=== PATIENT | female | born 1970 | race Caucasian/White ===

== ENCOUNTER 2017-05-18 19:39 | Emergency (ER) | payer SELFPAY ==
[~2017-05-18 19:39] MED LIST: CIPR500T4 PO; METR-1 PO; PERC5TAB12 PO
[2017-05-18 19:40] VITALS: BP 139/105; PULSE 125; RESP 16; TEMP 97.1; O2SAT 95
[2017-05-18] MEDS ORDERED: SODIUM CHLORIDE 0.9% FLUSH 10 ML FLUSH IV FLUSH PRN (20:30)
--- NOTE | 2017-05-18 20:48 | RADRPT ---
EXAM DATE/TIME: 05/18/2017 20:36 [facility] COMPARISON: No previous studies available for comparison. INDICATIONS : Syncope MEDICAL HISTORY : None. SURGICAL HISTORY : Tubal ligation. ENCOUNTER: Initial ACUITY: 1 day PAIN SCORE: 0/10 LOCATION: chest FINDINGS: PA and lateral views of the chest demonstrate the lungs to be symmetrically aerated without evidence of mass, infiltrate or effusion. The cardiomediastinal contours are unremarkable. Osseous structure s are intact. CONCLUSION: Normal examination. Yon Orosco MD on May 18, 2017 at 20:45 Board Certified Radiologist. This report was verified electronically.
--- NOTE | 2017-05-18 21:07 | PD ---
HPI Chief Complaint: Medical Clearance Time Seen by Provider: 20:28 Travel History International Travel<30 days: No Contact w/Intl Traveler<30days: No Traveled to known affect area: No History of Present Illness HPI Patient is a 47-year-old female presents emergency Department with daughter for complaints of altered mental status. Per the patient's daughter's has not been acting like herself in the past few hours, she does have a history of alcohol abuse. Patient states she's not had any alcohol since earlier this morning. She is calm and collective but certainly is somnolent in the emergency department. She states that she does have some mild abdominal cramping which is nonlocalizing. He was gagging in triage notes, no emesis. Does smell of EtOH this time. She denies any chest pain shortness of breath vomiting headache injury neck injury back injury vaginal bleeding or vaginal discharge. Per her daughter she has been talking "out of her head". She's never done this before. Somewhat limited by the patient's intoxication. PFSH Past Medical History Asthma: Yes Diminished Hearing: No Immunizations Current: Yes ?: Not : 4 Para: 3 Miscarriage: 1 Dilation and Curettage (D&C): Yes Tubal Ligation: Yes Past Surgical History Gynecologic Surgery: Yes (BTL) Social History Alcohol Use: Yes (12 BEERS/DAY) Tobacco Use: No Substance Use: No (DENIES) Allergies-Medications (Allergen,Severity, Reaction): Coded Allergies: No Known Allergies (Verified Allergy, Unknown, 05/18/17) Reported Meds & Prescriptions Reported Meds & Active Scripts Active Proair Hfa 8.5 GM Inh (Albuterol Sulfate) 90 Mcg/Act Aer 1 Puff INH Q4H PRN 108 mcg/actuation Keflex (Cephalexin) 500 Mg Cap 500 Mg PO Q6H 5 Days Review of Systems Except as stated in HPI: all other systems reviewed are Neg Physical Exam Narrative GENERAL: Well-developed well-nourished no obvious distress, thin, smells of alcohol. SKIN: Focused skin assessment warm/dry. HEAD: Atraumatic. Normocephalic. EYES: Pupils equal and round. No scleral icterus. No injection or drainage. ENT: No nasal bleeding or discharge. Mucous membranes pink and moist. NECK: Trachea midline. No JVD. CARDIOVASCULAR: Regular rate and rhythm. No murmur appreciated. RESPIRATORY: No accessory muscle use. Clear to auscultation. Breath sounds equal bilaterally. GASTROINTESTINAL: Abdomen soft, non-tender, nondistended. Hepatic and splenic margins not palpable. No rebound no percussive tenderness, Morales sign negative Rovsing sign negative psoas and obturator signs negative. No CVA tenderness. MUSCULOSKELETAL: No obvious deformities. No clubbing. No cyanosis. No edema. NEUROLOGICAL: Awake and alert. Somnolent but cranial nerves II through XII are grossly intact, 5 out of 5 strength in all 4 extremities, cerebellar testing negative, significant horizontal nystagmus. PSYCHIATRIC: Appropriate mood and affect; insight and judgment normal. Data Data Last Documented VS Vital Signs Date Time Temp Pulse Resp B/P (MAP) Pulse Ox O2 Delivery O2 Flow Rate FiO2 05/19/17 00:53 90 14 125/71 (89) 96 Room Air 05/18/17 23:23 2.00 05/18/17 19:40 97.1 Orders Orders Complete Blood Count With Diff (05/18/17 20:23) Comprehensive Metabolic Panel (05/18/17 20:23) Creatine Kinase (Cpk) (05/18/17 20:23) Urinalysis - C+S If Indicated (05/18/17 20:23) Chest, Pa & Lat (05/18/17 20:23) Ct Brain W/O Iv Contrast(Rout) (05/18/17 20:23) Blood Glucose (05/18/17 20:23) Ecg Monitoring (05/18/17 20:23) Iv Access Insert/Monitor (05/18/17 20:23) Oximetry (05/18/17 20:23) Sodium Chloride 0.9% Flush (Ns Flush) (05/18/17 20:30) Drug Screen, Random Urine (05/18/17 20:23) Alcohol (Ethanol) (05/18/17 20:23) Electrocardiogram (05/18/17 ) CKMB (05/18/17 21:09) CKMB% (05/18/17 21:09) Lipase (05/18/17 22:23) Sodium Chlor 0.9% 1000 Ml Inj (Ns 1000 M (05/18/17 22:30) Cath For Specimen (05/18/17 23:58) Urine Culture (05/18/17 23:58) Ed Discharge Order (05/19/17 00:42) Labs Laboratory Tests Test 05/18/17 21:09 05/18/17 21:36 05/18/17 23:58 White Blood Count 5.3 TH/MM3 Red Blood Count 3.01 MIL/MM3 Hemoglobin 7.2 GM/DL Hematocrit 22.7 % Mean Corpuscular Volume 75.2 FL Mean Corpuscular Hemoglobin 23.7 PG Mean Corpuscular Hemoglobin Concent 31.6 % Red Cell Distribution Width 19.9 % Platelet Count 264 TH/MM3 Mean Platelet Volume 7.5 FL Neutrophils (%) (Auto) 60.6 % Lymphocytes (%) (Auto) 27.2 % Monocytes (%) (Auto) 10.6 % Eosinophils (%) (Auto) 0.3 % Basophils (%) (Auto) 1.3 % Neutrophils # (Auto) 3.2 TH/MM3 Lymphocytes # (Auto) 1.4 TH/MM3 Monocytes # (Auto) 0.6 TH/MM3 Eosinophils # (Auto) 0.0 TH/MM3 Basophils # (Auto) 0.1 TH/MM3 CBC Comment DIFF FINAL Differential Comment Blood Urea Nitrogen 8 MG/DL Creatinine 0.91 MG/DL Random Glucose 99 MG/DL Total Protein 8.3 GM/DL Albumin 3.9 GM/DL Calcium Level 8.6 MG/DL Alkaline Phosphatase 95 U/L Aspartate Amino Transf (AST/SGOT) 90 U/L Alanine Aminotransferase (ALT/SGPT) 46 U/L Total Bilirubin 0.4 MG/DL Sodium Level 141 MEQ/L Potassium Level 3.5 MEQ/L Chloride Level 103 MEQ/L Carbon Dioxide Level 26.5 MEQ/L Anion Gap 12 MEQ/L Estimat Glomerular Filtration Rate 66 ML/MIN Total Creatine Kinase 422 U/L Creatine Kinase MB 6.9 NG/ML Creatine Kinase MB % 1.6 % Ethyl Alcohol Level 195 MG/DL Lipase 103 U/L Urine Color YELLOW Urine Turbidity CLOUDY Urine pH 5.0 Urine Specific Secretary 1.010 Urine Protein 30 mg/dL Urine Glucose (UA) NEG mg/dL Urine Ketones NEG mg/dL Urine Occult Blood SMALL Urine Nitrite NEG Urine Bilirubin NEG Urine Urobilinogen LESS THAN 2.0 MG/DL Urine Leukocyte Esterase MOD Urine RBC 4 /hpf Urine WBC 21 /hpf Urine Squamous Epithelial Cells 34 /hpf Urine Renal Epithelial Cells 4 /hpf Urine Bacteria OCC /hpf Urine Hyaline Casts 57 /lpf Urine Mucus FEW /lpf Microscopic Urinalysis Comment CATH-CULTURE IND Urine Opiates Screen POS Urine Barbiturates Screen NEG Urine Amphetamines Screen POS Urine Benzodiazepines Screen NEG Urine Cocaine Screen POS Urine Cannabinoids Screen NEG MDM Medical Decision Making Medical Screen Exam Complete: Yes Emergency Medical Condition: Yes Differential Diagnosis Alcohol intoxication, alcohol delirium, intracranial abnormality, lecture led her belly, urinary tract infection, acute abdomen unlikely. Narrative Course Patient roomed in emergency department, observed for several hours while her alcohol metabolized. Significant elevation on arrival, this probably explains her altered mental status, the patient's mental status improved significantly and daughter would like to take patient home. Discussed that her urine drug screen was also positive for multiple other substances of abuse. After obtaining permission from the patient this was also discussed with her daughter and recommended follow up with [facility] for an appropriate facility for treatment for substance abuse. Discussed since an old finding of urinary tract infection which may explain her abdominal cramping, will place on antibiotics. She is also anemic and this was discussed with her and she would like to follow-up the primary care physician. Discussed if any bleeding per rectum or hematemesis occur the patient should return to emergency department immediately. This was discussed both the daughter and the patient both verbalized understanding and agreement. Diagnosis Primary Impression: UTI (urinary tract infection) Additional Impressions: Alcohol abuse Alcohol intoxication Anemia Referrals: [facility]Other Pt SpecificInfo: Prescription(s) given Scripts Albuterol 8.5 GM Inh (Proair Hfa 8.5 GM Inh) 90 Mcg/Act Aer 1 PUFF INH Q4H Y for SHORTNESS OF BREATH, #1 INHALER 1 Refill 108 mcg/actuation Prov: Foreign Denton MD 05/19/17 Cephalexin (Keflex) 500 Mg Cap 500 MG PO Q6H for Infection for 5 Days, #20 CAP 0 Refills Prov: Foreign Denton MD 05/19/17 Disposition: 01 DISCHARGE HOME Condition: Stable Foreign Denton MD May 18, 2017 21:07
[2017-05-18 22:12] LABS: ALBUMIN 3.9 GM/DL (3.4-5.0); AST (GOT) 90 U/L (15-37); BICARBONATE 26.5 MEQ/L (21.0-32.0); BLOOD UREA NITROGEN 8 MG/DL (7-18); CALCIUM 8.6 MG/DL (8.5-10.1); CHLORIDE 103 MEQ/L (98-107); CREATININE 0.91 MG/DL (0.50-1.00); GLOMERULAR FILTRATION RATE 66 ML/MIN (>89); GLUCOSE,RANDOM 99 MG/DL (74-106); SODIUM (NA) 141 MEQ/L (136-145)
--- NOTE | 2017-05-18 22:13 | RADRPT ---
EXAM DATE/TIME: 05/18/2017 21:52 [facility] COMPARISON: No previous studies available for comparison. INDICATIONS : Altered mental status. RADIATION DOSE: 56.35 CTDIvol (mGy) MEDICAL HISTORY : ETOH abuse SURGICAL HISTORY : Tubal ligation. D&C ENCOUNTER: Initial ACUITY: 1 day PAIN SCALE: 0/10 LOCATION: cranial TECHNIQUE: Multiple contiguous axial images were obtained of the head. Using automated exposure control and adj ustment of the mA and/or kV according to patient size, radiation dose was kept as low as reasonably a chievable to obtain optimal diagnostic quality images. DICOM format image data is available electro nically for review and comparison. FINDINGS: CEREBRUM: The ventricles are normal for age. No evidence of midline shift, mass lesion, hemorrhage or acute in farction. No extra-axial fluid collections are seen. POSTERIOR FOSSA: The cerebellum and brainstem are intact. The 4th ventricle is midline. The cerebellopontine angle i s unremarkable. EXTRACRANIAL: The visualized portion of the orbits is intact. SKULL: The calvaria is intact. No evidence of skull fracture. CONCLUSION: Normal examination. Yon Orosco MD on May 18, 2017 at 22:11 Board Certified Radiologist. This report was verified electronically.
[2017-05-18 22:14] LABS: ALT (GPT) 46 U/L (10-53)
[2017-05-18 22:16] LABS: ALKALINE PHOSPHATASE 95 U/L (45-117); TOTAL BILIRUBIN ADULT 0.4 MG/DL (0.2-1.0); TOTAL PROTEIN 8.3 GM/DL (6.4-8.2)
[2017-05-18] MEDS ORDERED: SODIUM CHLOR 0.9% 1000 ML INJ 1,000 ML IV ONE (22:30)
[2017-05-18 23:03] LABS: AUTOMATED NEUTROPHIL # 3.2 TH/MM3 (1.8-7.7); BASOPHIL # 0.1 TH/MM3 (0-0.2); BASOPHIL % 1.3 % (0.0-2.0); EOSINOPHIL % 0.3 % (0.0-4.0); HEMATOCRIT 22.7 % (35.0-46.0); HEMOGLOBIN 7.2 GM/DL (11.6-15.3); LYMPH % 27.2 % (9.0-44.0); LYMPHOCYTE # 1.4 TH/MM3 (1.0-4.8); MEAN CELL VOLUME 75.2 FL (80.0-100.0); MEAN CORPUSCULAR HEMOGLOBIN 23.7 PG (27.0-34.0); MEAN CORPUSCULAR HGB CONC 31.6 % (32.0-36.0); MEAN PLATELET VOLUME 7.5 FL (7.0-11.0); MONO % 10.6 % (0.0-8.0); MONOCYTE # 0.6 TH/MM3 (0-0.9); NEUT % 60.6 % (16.0-70.0); PLATELET COUNT 264 TH/MM3 (150-450); RED BLOOD COUNT 3.01 MIL/MM3 (4.00-5.30); RED CELL DISTRIBUTION WIDTH 19.9 % (11.6-17.2); WHITE BLOOD COUNT 5.3 TH/MM3 (4.0-11.0)
[2017-05-18 23:23] VITALS: BP 148/85; PULSE 105; RESP 12; O2SAT 100
[2017-05-18 23:25] VITALS: O2SAT 100
[2017-05-19 00:17] LABS: BACTERIA, URINE OCC /hpf; BILIRUBIN, URINE NEG (NEG); BLOOD, URINE SMALL (NEG); GLUCOSE,URINE NEG (NEG); HYALINE CAST, URINE 57 /lpf (RARE); KETONE, URINE NEG (NEG); MUCUS URINE FEW /lpf (OCC); NITRITE,URINE NEG (NEG); RENAL EPITHELIAL CELLS 4 /hpf; SQUAMOUS EPITHELIAL CELL URINE 34 /hpf (0-5); URINE COLOR YELLOW (YELLW/STRAW); URINE LEUKOCYTE ESTERASE MOD (NEG)
[2017-05-19] MEDS ORDERED: CEPH-460 PO (00:41)
[2017-05-19 00:53] VITALS: BP 125/71; PULSE 90; RESP 14; O2SAT 96
[2017-05-19] MEDS ORDERED: ALBUAER3 INH (00:53)
--- NOTE | 2017-05-19 14:01 | EKG ---
Date Performed: 05/18/2017 Time Performed: 20:55:15 PTAGE: 47 years EKG: Sinus rhythm NORMAL ECG NO PREVIOUS TRACING DOCTOR: Sandor Gordon Interpretating Date/Time 05/19/2017 13:59:24
== END 2017-05-19 01:13 | disposition home or self-care (01) ==
LOC: NEPE 19:39
DX: N39.0 Urinary tract infection, site not specified (principal); F10.129 Alcohol abuse with intoxication, unspecified; R41.82 Altered mental status, unspecified; D64.9 Anemia, unspecified; J45.909 Unspecified asthma, uncomplicated; R10.9 Unspecified abdominal pain; Z79.51 Long term (current) use of inhaled steroids
CPT/HCPCS: 70450; 71046; 80053; 80307; 81001; 82550; 82552; 83690; 85025; 87086; 93005; 99285; J7030